=== PATIENT | female | born 1995 | race African-American/Black ===

== ENCOUNTER 2016-08-26 12:36 | Emergency (ER) | payer MEDICAID, OTHER ==
[~2016-08-26] VITALS: Ht 152.4 cm; Wt 55.0 kg
[~2016-08-26 12:36] MED LIST: SPRI28TA PO
[2016-08-26 12:43] VITALS: BP 108/75; PULSE 87; RESP 12; TEMP 97.5; O2SAT 99
[2016-08-26] MEDS ORDERED: SODIUM CHLOR 0.9% 1000 ML INJ 1,000 ML IV ONE (13:15)
--- NOTE | 2016-08-26 13:24 | PD ---
HPI Chief Complaint: Syncope/Near-Syncope Time Seen by Provider: 13:20 Travel History International Travel<30 days: No Contact w/Intl Traveler<30days: No Traveled to known affect area: No History of Present Illness HPI Patient is a 20-year-old female 11 weeks gestation age who woke up this morning with a left-sided frontal headache and experienced a syncopal at work. She states that one hour prior to arrival she felt the headache acutely worsen and then she developed blurred vision, a warm feeling, shortness of breath and passed out. Loss of consciousness was only a few seconds. She states she hit her forehead on the floor and the headache has worsened. She states that she can hear people talking to her while she has passed out. This was not positional related as she been standing for some time. She denies any neck pain , weakness or paresthesias in her extremities. She denies difficulty speaking. She states she is continued have shortness of breath and has now developed a dry cough. He denies any fever or ENT/URI symptoms. She denies any swelling or pain in her legs. She denies history of DVT. She had an ultrasound on August 12 which showed an intrauterine at 9 weeks gestational age she states. She denies any abdominal pain, vaginal bleeding or vaginal discharge. She denies dysuria and diarrhea. 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) Respiratory: No Immunizations Current: Yes ?: : 0 Past Surgical History Hysterectomy: No Tonsillectomy: Yes Social History Alcohol Use: No Tobacco Use: No Substance Use: No Allergies-Medications (Allergen,Severity, Reaction): Uncoded Allergies: dust mites (Allergy, Unknown, hives, 03/30/15) Reported Meds & Prescriptions Reported Meds & Active Scripts Active Sprintec 28 (Ethinyl Estradiol/Norgestimate) 1 Tab Tab 1 Tab PO DAILY Review of Systems Except as stated in HPI: all other systems reviewed are Neg Physical Exam Narrative GENERAL: Well-developed and well-nourished adult female in no acute distress. SKIN: Warm and dry. Good turgor without tenting. HEAD: Normocephalic and atraumatic. No abrasions or hematomas. Mild left frontal tenderness without crepitus or step-offs. EYES: PERRL bilaterally, 5mm. EOMI bilaterally. No injection or icterus present. No proptosis. Lids without edema or erythema. ENT: Buccal mucosa pink and moist. Oropharynx free of erythema, tonsillar hypertrophy, masses, swelling, asymmetry and exudates. Uvula midline and airway patent. NECK: Supple, no midline tenderness, crepitus or step-offs. Trachea midline, no JVD. No cervical or facial lymphadenopathy. CARDIOVASCULAR: Regular rate and rhythm without murmurs, rubs, clicks or gallops. Radial and posterior tibial pulses 2+ bilaterally. No pedal edema. Negative bilateral Homans sign. RESPIRATORY: Clear to auscultation bilaterally with symmetrical rise and fall, no distress or use of accessory muscles. GASTROINTESTINAL: Non-tender, non-distended. Normal bowel sounds all 4 quadrants. No masses or organomegaly present. MUSCULOSKELETAL: No gait disturbances. Patient freely moving all four extremities spontaneously. Extremities without clubbing, cyanosis, or edema. No obvious deformities. NEUROLOGIC: CN II-XII grossly intact. Awake and alert. Negative pronator drift. Anguiano and accurate finger to nose testing bilaterally. Strength 5/5 bilateral shoulder flexion, shoulder extension, shoulder abduction, shoulder adduction, elbow flexion, elbow extension. Sensation intact and strength 5/5 over radial, median, and ulnar nerve distributions bilaterally.Sensation intact L2-S2 bilaterally. Strength 5/5 in hip flexion, hip extension, knee flexion, knee extension, plantar flexion, dorsiflexion bilaterally. Bilateral biceps, brachioradialis, patellar and Achilles DTRs 2+. Downgoing Babinskis bilaterally. Normal speech. PSYCHIATRIC: Appropriate mood and affect; insight and judgment normal. Data Data Last Documented VS Vital Signs Date Time Temp Pulse Resp B/P Pulse Ox O2 Delivery O2 Flow Rate FiO2 08/26/16 14:02 80 15 114/62 86 16 129/72 08/26/16 13:35 98 Room Air 08/26/16 12:43 97.5 Orders Electrocardiogram (08/26/16 13:15) Beta Hcg (Quant/Titer) (08/26/16 13:15) Complete Blood Count With Diff (08/26/16 13:15) Comprehensive Metabolic Panel (08/26/16 13:15) Magnesium (Mg) (08/26/16 13:15) Ckmb (Isoenzyme) Profile (08/26/16 13:15) Troponin I (08/26/16 13:15) Act Partial Throm Time (Ptt) (08/26/16 13:15) Prothrombin Time / Inr (Pt) (08/26/16 13:15) Urinalysis - C+S If Indicated (08/26/16 13:15) Chest, Single Ap (08/26/16 13:15) Ct Brain W/O Iv Contrast(Rout) (08/26/16 13:15) Blood Glucose (08/26/16 13:15) Ecg Monitoring (08/26/16 13:15) Iv Access Insert/Monitor (08/26/16 13:15) Oximetry (08/26/16 13:15) Sodium Chlor 0.9% 1000 Ml Inj (Ns 1000 M (08/26/16 13:15) Orthostatic Vital Signs (08/26/16 13:15) Ed Poc Ultrasound (08/26/16 13:15) Acetaminophen (Tylenol) (08/26/16 14:45) Labs Laboratory Tests Test 08/26/16 08/26/16 13:45 14:40 White Blood Count 10.5 TH/MM3 Red Blood Count 4.26 MIL/MM3 Hemoglobin 12.9 GM/DL Hematocrit 37.7 % Mean Corpuscular Volume 88.5 FL Mean Corpuscular Hemoglobin 30.2 PG Mean Corpuscular Hemoglobin 34.2 % Concent Red Cell Distribution Width 12.9 % Platelet Count 295 TH/MM3 Mean Platelet Volume 8.9 FL Neutrophils (%) (Auto) 79.1 % Lymphocytes (%) (Auto) 13.6 % Monocytes (%) (Auto) 6.5 % Eosinophils (%) (Auto) 0.4 % Basophils (%) (Auto) 0.4 % Neutrophils # (Auto) 8.3 TH/MM3 Lymphocytes # (Auto) 1.4 TH/MM3 Monocytes # (Auto) 0.7 TH/MM3 Eosinophils # (Auto) 0.0 TH/MM3 Basophils # (Auto) 0.0 TH/MM3 CBC Comment DIFF FINAL Differential Comment Prothrombin Time 10.8 SEC Prothromb Time International 1.0 RATIO Ratio Activated Partial 23.3 SEC Thromboplast Time Sodium Level 134 MEQ/L Potassium Level 3.6 MEQ/L Chloride Level 103 MEQ/L Carbon Dioxide Level 23.0 MEQ/L Anion Gap 8 MEQ/L Blood Urea Nitrogen 7 MG/DL Creatinine 0.63 MG/DL Estimat Glomerular Filtration 147 ML/MIN Rate Random Glucose 80 MG/DL Calcium Level 8.5 MG/DL Magnesium Level 1.8 MG/DL Total Bilirubin 0.3 MG/DL Aspartate Amino Transf 14 U/L (AST/SGOT) Alanine Aminotransferase 24 U/L (ALT/SGPT) Alkaline Phosphatase 56 U/L Total Creatine Kinase 51 U/L Troponin I LESS THAN 0.02 NG/ML Total Protein 7.3 GM/DL Albumin 3.2 GM/DL Human Chorionic Gonadotropin, 63872 MIU/ML Quant Urine Color LIGHT-YELLOW Urine Turbidity CLEAR Urine pH 6.5 Urine Specific [place] 1.008 Urine Protein NEG mg/dL Urine Glucose (UA) NEG mg/dL Urine Ketones 10 mg/dL Urine Occult Blood NEG Urine Nitrite NEG Urine Bilirubin NEG Urine Urobilinogen LESS THAN 2.0 MG/DL Urine Leukocyte Esterase NEG Urine RBC 1 /hpf Urine WBC 3 /hpf Urine Squamous Epithelial 1 /hpf Cells Urine Bacteria RARE /hpf Microscopic Urinalysis Comment CULT NOT INDICATED MDM Medical Decision Making Medical Screen Exam Complete: Yes Emergency Medical Condition: Yes Interpretation(s) Laboratory Tests Test 08/26/16 08/26/16 13:45 14:40 White Blood Count 10.5 TH/MM3 (4.0-11.0) Red Blood Count 4.26 MIL/MM3 (4.00-5.30) Hemoglobin 12.9 GM/DL (11.6-15.3) Hematocrit 37.7 % (35.0-46.0) Mean Corpuscular Volume 88.5 FL (80.0-100.0) Mean Corpuscular Hemoglobin 30.2 PG (27.0-34.0) Mean Corpuscular Hemoglobin 34.2 % Concent (32.0-36.0) Red Cell Distribution Width 12.9 % (11.6-17.2) Platelet Count 295 TH/MM3 (150-450) Mean Platelet Volume 8.9 FL (7.0-11.0) Neutrophils (%) (Auto) 79.1 % (16.0-70.0) Lymphocytes (%) (Auto) 13.6 % (9.0-44.0) Monocytes (%) (Auto) 6.5 % (0.0-8.0) Eosinophils (%) (Auto) 0.4 % (0.0-4.0) Basophils (%) (Auto) 0.4 % (0.0-2.0) Neutrophils # (Auto) 8.3 TH/MM3 (1.8-7.7) Lymphocytes # (Auto) 1.4 TH/MM3 (1.0-4.8) Monocytes # (Auto) 0.7 TH/MM3 (0-0.9) Eosinophils # (Auto) 0.0 TH/MM3 (0-0.4) Basophils # (Auto) 0.0 TH/MM3 (0-0.2) CBC Comment DIFF FINAL Differential Comment Prothrombin Time 10.8 SEC (9.8-11.6) Prothromb Time International 1.0 RATIO Ratio Activated Partial 23.3 SEC Thromboplast Time (24.3-30.1) Sodium Level 134 MEQ/L (136-145) Potassium Level 3.6 MEQ/L (3.5-5.1) Chloride Level 103 MEQ/L (98-107) Carbon Dioxide Level 23.0 MEQ/L (21.0-32.0) Anion Gap 8 MEQ/L (5-15) Blood Urea Nitrogen 7 MG/DL (7-18) Creatinine 0.63 MG/DL (0.50-1.00) Estimat Glomerular Filtration 147 ML/MIN Rate (>89) Random Glucose 80 MG/DL (74-106) Calcium Level 8.5 MG/DL (8.5-10.1) Magnesium Level 1.8 MG/DL (1.5-2.5) Total Bilirubin 0.3 MG/DL (0.2-1.0) Aspartate Amino Transf 14 U/L (16-38) (AST/SGOT) Alanine Aminotransferase 24 U/L (9-42) (ALT/SGPT) Alkaline Phosphatase 56 U/L (45-117) Total Creatine Kinase 51 U/L (26-192) Troponin I LESS THAN 0.02 NG/ML (0.02-0.05) Total Protein 7.3 GM/DL (6.4-8.2) Albumin 3.2 GM/DL (3.4-5.0) Human Chorionic Gonadotropin, 55918 MIU/ML Quant (0-5) Urine Color LIGHT-YELLOW (YELLW/STRAW) Urine Turbidity CLEAR (CLEAR) Urine pH 6.5 (5.0-8.5) Urine Specific [place] 1.008 (1.002-1.035) Urine Protein NEG mg/dL (NEG-TRACE) Urine Glucose (UA) NEG mg/dL (NEG) Urine Ketones 10 mg/dL (NEG) Urine Occult Blood NEG (NEG) Urine Nitrite NEG (NEG) Urine Bilirubin NEG (NEG) Urine Urobilinogen LESS THAN 2.0 MG/DL (LESS THAN 2.0) Urine Leukocyte Esterase NEG (NEG) Urine RBC 1 /hpf (0-3) Urine WBC 3 /hpf (0-5) Urine Squamous Epithelial 1 /hpf (0-5) Cells Urine Bacteria RARE /hpf (NONE) Microscopic Urinalysis Comment CULT NOT INDICATED Last [address] 08/26/[id number] Signed Impressions: Service Date/Time: Friday, August 26, 2016 14:20 - CONCLUSION: 1. No acute abnormality identified. Eliud Andres MD Chest X-Ray 08/26/161314 Signed Impressions: Service Date/Time: Friday, August 26, 2016 13:32 - CONCLUSION: No acute disease. No significant change has occurred. Mt Patel MD Differential Diagnosis Intracranial hemorrhage versus ectopic versus preeclampsia versus arrhythmia versus metabolic derangement versus valvular disorder versus PE versus hypoglycemia versus vasovagal syndrome versus orthostatic hypotension Narrative Course Patient is a 20-year-old female with a history of migraine disorder is currently 11 weeks presenting with a syncopal episode and headache. Is a history of migraines but also the left frontal meningioma and had a headache this morning that was different from her usual headaches. Headache worsening intensity and that she experienced her vision, warm feeling, shortness of breath and had a syncopal episode. She was able to hear people talking her during this time. This lasted a few seconds. She didn't hit her head on the floor when falling and has had worsening headache since. She has no other neurological complaints and her exam is normal. Ultrasound done on August 12 showed 9 week gestational age IUP per patient. Dr. Yee and I performed bedside ultrasound which also showed IUP with normal heart rate. Patient has some dyspnea on arrival and a slight dry cough which has resolved. She admits to not eating anything today but has been drinking fluids. She denies any belly pain or vaginal bleeding or discharge. Labs ordered in addition to EKG and chest x-ray. I discussed with Dr. Eli who agreed the patient required CT of the head given the worsening headache, history of angioma and fall. I discussed with the patient and her family the risks and benefits and she wishes to proceed. I spoke with Liyah in CT attempt to minimize radiation dose and she'll appropriately and they will respond properly. Glucose 82. EKG sinus rhythm with rate of 78. Normal intervals and axis. No ST-T changes. Chest x-ray shows no acute cardiopulmonary process. CBC shows WBC 10.5. Urine shows 10 ketones but is otherwise unremarkable. Sodium 134, albumin 3.2, troponin less than 0.02. HCG 57,000 consistent with gestational age. Patient reports resolution of the headache after fluids and Tylenol. This time the syncope episode was likely secondary to mild dehydration and possible hypoglycemia with current . Cardio: Symptoms have resolved and she has been normotensive and not hypoxic or tachycardic while here. Discussed with Dr. Eli regarding workup for PE and she agrees this is not warranted at present. Patient will be discharged with recommendations to drink lots of fluids, eat small regular meals, avoid overexertion and called with her PCP and OB in 1-2 days.I discussed this patient with Dr. Eli throughout their care. She has also evaluated this patient, helped formulate, and agrees with the assessment and plan.See discharge paperwork for further instructions. The plan was discussed with the patient who acknowledged their understanding and agreement. Reinforced the follow-up with primary care is critically important. Patient instructed on emergent conditions that should prompt return to ED. Diagnosis Primary Impression: Syncope Qualified Code: R55 - Vasovagal syncope Additional Impressions: Headache Qualified Code: G44.209 - Acute non intractable tension-type headache Qualified Code: Z3A.11 - 11 weeks gestation of Patient Instructions: First Trimester (ED), General Instructions, Syncope (ED) Additional Instructions: Continue taking vitamins Drink lots of fluids and eat small regular meals every 3-4 hours to avoid dehydration or low blood sugar Use caution when transferring from lying or sitting to standing Follow-up with your OB in 1-2 days Return to the ED for any acute worsening of symptoms Disposition: 01 DISCHARGE HOME Condition: Stable Watson Walker III Aug 26, 2016 13:24
--- NOTE | 2016-08-26 13:44 | PD ---
Physical Exam Narrative I, Dr. Eli, have reviewed the advance practice practitioner's documentation and am in agreement, met with the patient face to face, made the diagnosis, and the medical decision making was done by me. *My assessment and Findings: Patient is a 20-year-old female, approximately 11 weeks who comes in after syncopal episode today. This is the second time she has had syncope during this . She denies any bleeding or leakage of fluids. She says she felt very hot prior to the episode. She says she did not eat today. She complains of a cough with one episode of shortness of breath. She has not had any leg swelling. Exam shows no neurologic abnormalities. Abdomen is soft and nontender. Data Data Last Documented VS Vital Signs Date Time Temp Pulse Resp B/P Pulse Ox O2 Delivery O2 Flow Rate FiO2 08/26/16 16:30 62 15 114/70 97 08/26/16 13:35 Room Air 08/26/16 12:43 97.5 Orders Electrocardiogram (08/26/16 13:15) Beta Hcg (Quant/Titer) (08/26/16 13:15) Complete Blood Count With Diff (08/26/16 13:15) Comprehensive Metabolic Panel (08/26/16 13:15) Magnesium (Mg) (08/26/16 13:15) Ckmb (Isoenzyme) Profile (08/26/16 13:15) Troponin I (08/26/16 13:15) Act Partial Throm Time (Ptt) (08/26/16 13:15) Prothrombin Time / Inr (Pt) (08/26/16 13:15) Urinalysis - C+S If Indicated (08/26/16 13:15) Chest, Single Ap (08/26/16 13:15) Ct Brain W/O Iv Contrast(Rout) (08/26/16 13:15) Blood Glucose (08/26/16 13:15) Ecg Monitoring (08/26/16 13:15) Iv Access Insert/Monitor (08/26/16 13:15) Oximetry (08/26/16 13:15) Sodium Chlor 0.9% 1000 Ml Inj (Ns 1000 M (08/26/16 13:15) Orthostatic Vital Signs (08/26/16 13:15) Ed Poc Ultrasound (08/26/16 13:15) Acetaminophen (Tylenol) (08/26/16 14:45) Labs Laboratory Tests Test 08/26/16 08/26/16 13:45 14:40 White Blood Count 10.5 TH/MM3 Red Blood Count 4.26 MIL/MM3 Hemoglobin 12.9 GM/DL Hematocrit 37.7 % Mean Corpuscular Volume 88.5 FL Mean Corpuscular Hemoglobin 30.2 PG Mean Corpuscular Hemoglobin 34.2 % Concent Red Cell Distribution Width 12.9 % Platelet Count 295 TH/MM3 Mean Platelet Volume 8.9 FL Neutrophils (%) (Auto) 79.1 % Lymphocytes (%) (Auto) 13.6 % Monocytes (%) (Auto) 6.5 % Eosinophils (%) (Auto) 0.4 % Basophils (%) (Auto) 0.4 % Neutrophils # (Auto) 8.3 TH/MM3 Lymphocytes # (Auto) 1.4 TH/MM3 Monocytes # (Auto) 0.7 TH/MM3 Eosinophils # (Auto) 0.0 TH/MM3 Basophils # (Auto) 0.0 TH/MM3 CBC Comment DIFF FINAL Differential Comment Prothrombin Time 10.8 SEC Prothromb Time International 1.0 RATIO Ratio Activated Partial 23.3 SEC Thromboplast Time Sodium Level 134 MEQ/L Potassium Level 3.6 MEQ/L Chloride Level 103 MEQ/L Carbon Dioxide Level 23.0 MEQ/L Anion Gap 8 MEQ/L Blood Urea Nitrogen 7 MG/DL Creatinine 0.63 MG/DL Estimat Glomerular Filtration 147 ML/MIN Rate Random Glucose 80 MG/DL Calcium Level 8.5 MG/DL Magnesium Level 1.8 MG/DL Total Bilirubin 0.3 MG/DL Aspartate Amino Transf 14 U/L (AST/SGOT) Alanine Aminotransferase 24 U/L (ALT/SGPT) Alkaline Phosphatase 56 U/L Total Creatine Kinase 51 U/L Troponin I LESS THAN 0.02 NG/ML Total Protein 7.3 GM/DL Albumin 3.2 GM/DL Human Chorionic Gonadotropin, 18975 MIU/ML Quant Urine Color LIGHT-YELLOW Urine Turbidity CLEAR Urine pH 6.5 Urine Specific [place] 1.008 Urine Protein NEG mg/dL Urine Glucose (UA) NEG mg/dL Urine Ketones 10 mg/dL Urine Occult Blood NEG Urine Nitrite NEG Urine Bilirubin NEG Urine Urobilinogen LESS THAN 2.0 MG/DL Urine Leukocyte Esterase NEG Urine RBC 1 /hpf Urine WBC 3 /hpf Urine Squamous Epithelial 1 /hpf Cells Urine Bacteria RARE /hpf Microscopic Urinalysis Comment CULT NOT INDICATED MDM Supervised Visit with ALTHEA: Yes Narrative Course IV established, patient monitored on surveillance monitor without any arrhythmia seen. CT head performed after patient gave consent, shows no acute abnormalities. Labs are within normal limits. US shows IUP, no free fluid in the pelvis. Patient discharged home to follow up with OB. Advised to drink plenty of fluids. Advised to return as needed for any worsening symptoms. Procedures Procedure Narrative Emergency Department Pelvic ultrasound was performed with patient consent. The curvilinear probe was used in the transverse and sagittal views within the suprapubic region revealing single intrauterine . heart rate was 162. No free fluid in the pelvis. Diagnosis Primary Impression: Syncope Qualified Code: R55 - Vasovagal syncope Disposition: 01 DISCHARGE HOME Condition: Stable Hermila Eli MD Aug 26, 2016 13:44
--- NOTE | 2016-08-26 13:52 | RADRPT ---
EXAM DATE/TIME: 08/26/2016 13:32 [facility] COMPARISON: CHEST SINGLE AP, December 07, 2014, 17:38. INDICATIONS : Syncope, cough. MEDICAL HISTORY : None. SURGICAL HISTORY : None. ENCOUNTER: Initial ACUITY: 1 day PAIN SCORE: 0/10 LOCATION: Bilateral chest FINDINGS: A single view of the chest demonstrates the lungs to be symmetrically aerated without evidence of mas s, infiltrate or effusion. The cardiomediastinal contours are unremarkable. Osseous structures are intact. CONCLUSION: No acute disease. No significant change has occurred. Mt Patel MD on August 26, 2016 at 13:50 Board Certified Radiologist. This report was verified electronically.
[2016-08-26 13:56] LABS: AUTOMATED NEUTROPHIL # 8.3 TH/MM3 (1.8-7.7); BASOPHIL % 0.4 % (0.0-2.0); EOSINOPHIL % 0.4 % (0.0-4.0); HEMATOCRIT 37.7 % (35.0-46.0); HEMO FLAGS DIFF FINAL; LYMPH % 13.6 % (9.0-44.0); LYMPHOCYTE # 1.4 TH/MM3 (1.0-4.8); MEAN CELL VOLUME 88.5 FL (80.0-100.0); MEAN CORPUSCULAR HEMOGLOBIN 30.2 PG (27.0-34.0); MEAN CORPUSCULAR HGB CONC 34.2 % (32.0-36.0); MONO % 6.5 % (0.0-8.0); NEUT % 79.1 % (16.0-70.0); PLATELET COUNT 295 TH/MM3 (150-450); RED BLOOD COUNT 4.26 MIL/MM3 (4.00-5.30); RED CELL DISTRIBUTION WIDTH 12.9 % (11.6-17.2); WHITE BLOOD COUNT 10.5 TH/MM3 (4.0-11.0)
[2016-08-26 14:02] VITALS: BP_SYST 114; BP_SYST 129; BP_DIAS 62; BP_DIAS 72; RESP 15; RESP 16
[2016-08-26 14:14] LABS: APTT (PATIENT) 23.3 SEC (24.3-30.1); PROTHROMBIN TIME - PATIENT 10.8 SEC (9.8-11.6)
[2016-08-26 14:21] LABS: ANION GAP 8 MEQ/L (5-15); AST (GOT) 14 U/L (16-38); BLOOD UREA NITROGEN 7 MG/DL (7-18); CHLORIDE 103 MEQ/L (98-107); GLOMERULAR FILTRATION RATE 147 ML/MIN (>89); MAGNESIUM 1.8 MG/DL (1.5-2.5); POTASSIUM 3.6 MEQ/L (3.5-5.1); SODIUM (NA) 134 MEQ/L (136-145)
--- NOTE | 2016-08-26 14:30 | RADRPT ---
EXAM DATE/TIME: 08/26/2016 14:20 [facility] COMPARISON: No previous studies available for comparison. INDICATIONS : Sycopal episode. Dizziness. Left frontal headache. RADIATION DOSE: 56.35 CTDIvol (mGy) MEDICAL HISTORY : Venous angioma frontal lobe. SURGICAL HISTORY : None. ENCOUNTER: Initial ACUITY: 1 day PAIN SCALE: 8/10 LOCATION: Left cranial TECHNIQUE: Multiple contiguous axial images were obtained of the head. Using automated exposure control and adj ustment of the mA and/or kV according to patient size, radiation dose was kept as low as reasonably a chievable to obtain optimal diagnostic quality images. FINDINGS: CEREBRUM: The ventricles are normal for age. No evidence of midline shift, mass lesion, hemorrhage or acute in farction. No extra-axial fluid collections are seen. By report, this patient has a venous angioma in the frontal lobe. This is not visible by noncontrast CT imaging. POSTERIOR FOSSA: The cerebellum and brainstem are intact. The 4th ventricle is midline. The cerebellopontine angle i s unremarkable. EXTRACRANIAL: The visualized portion of the orbits is intact. SKULL: The calvaria is intact. No evidence of skull fracture. CONCLUSION: 1. No acute abnormality identified. Eliud Andres MD on August 26, 2016 at 14:27 Board Certified Radiologist. This report was verified electronically.
[2016-08-26 14:42] LABS: ALKALINE PHOSPHATASE 56 U/L (45-117); ALT (GPT) 24 U/L (9-42); BETA HCG QUANT 57382 MIU/ML (0-5); CREATINE KINASE 51 U/L (26-192); TOTAL BILIRUBIN ADULT 0.3 MG/DL (0.2-1.0)
[2016-08-26] MEDS ORDERED: ACETAMINOPHEN 325 MG TAB PO ONE (14:45)
[2016-08-26 15:14] LABS: BACTERIA, URINE RARE /hpf; BLOOD, URINE NEG (NEG); COMMENT (UR) CULT NOT INDICATED; CULTURE IF INDICATED CULT NOT INDICATED; GLUCOSE,URINE NEG (NEG); KETONE, URINE 10 mg/dL (NEG); NITRITE,URINE NEG (NEG); PH, URINE 6.5 (5.0-8.5); SQUAMOUS EPITHELIAL CELL URINE 1 /hpf (0-5); URINE COLOR LIGHT-YELLOW (YELLW/STRAW)
[2016-08-26 16:30] VITALS: BP 114/70
--- NOTE | 2016-08-27 11:53 | EKG ---
Date Performed: 08/26/2016 Time Performed: 14:14:07 PTAGE: 20 years EKG: Sinus rhythm WITH MARKED SINUS ARRHYTHMIA BORDERLINE ECG PREVIOUS TRACING : 07/13/2013 06.36 DOCTOR: Lance Saab Interpretating Date/Time 08/27/2016 11:52:50
== END 2016-08-26 16:30 | disposition home or self-care (01) ==
LOC: NEPE 12:36
DX: O26.891 Other specified pregnancy related conditions, first trimester (principal); G44.209 Tension-type headache, unspecified, not intractable; R55 Syncope and collapse; Z3A.11 11 weeks gestation of pregnancy
CPT/HCPCS: 70450; 71010; 80053; 81001; 82550; 83735; 84484; 84702; 85025; 85610; 85730; 93005; 99285; J7030

== ENCOUNTER 2016-12-18 04:23 | Emergency (ER) | payer MEDICAID ==
[2016-12-18 05:48] LABS: BACTERIA, URINE OCC /hpf; BLOOD, URINE NEG (NEG); GLUCOSE,URINE NEG (NEG); KETONE, URINE NEG (NEG); MUCUS URINE FEW /lpf (OCC); NITRITE,URINE NEG (NEG); SQUAMOUS EPITHELIAL CELL URINE 2 /hpf (0-5); TRANSITIONAL EPI CELLS, URINE <1 /hpf; URINE COLOR YELLOW (YELLW/STRAW)
[2016-12-18 05:56] LABS: COMMENT (UR) CULT NOT INDICATED; CULTURE IF INDICATED CULT NOT INDICATED
--- NOTE | 2016-12-18 06:03 | PD ---
HPI Chief Complaint Fall Date Seen: Dec 18, 2016 Travel History International Travel<30 Days: No Contact w/Intl Traveler<30Days: No Known Affected Area: No History of Present Illness HPI 21 yo @ 28w0d with MO 03-12-2017. care with Dr. Recinos. Patient presents to [facility] this am after falling in her shower. She slipped and hit her left lower back/side in the edge of the tub. She denies hitting her abdomen. She c/o back pain in that area. Denies UC, LOF, or VB. +FM History Past Medical History Medical History: Denies Significant Hx Obstetric History Obstetric History G1 Past Surgical History Narrative Surgical T&A Family History Family History: Negative Social History Alcohol Use: No Tobacco Use: No Substance Abuse: No Allergies-Medications (Allergen,Severity, Reaction): Uncoded Allergies: dust mites (Allergy, Unknown, hives, 03/30/15) Home Meds Active Scripts Norgestimate-Ethinyl Estradiol (Sprintec 28)1 Tab Tab1 Tab PO DAILY #1 PACK Ref 11 Prov:Kayode Fabian MD 11/26/15 Review of Systems General / Constitutional: No: Fever, Chills Eyes: No: Blurred Vision, Visual changes HENT: No: Headaches, Lightheadedness Cardiovascular: No: Chest Pain or Discomfort, Palpitations Respiratory: No: Cough, Short of Breath Gastrointestinal: No: Nausea, Vomiting, Abdominal Pain Genitourinary: No: Urgency, Frequency, Dysuria, Discharge, Vaginal Bleeding Musculoskeletal: Pain (left lower back), No: Limited ROM, Edema Skin: No Rash, No Itching, No Lesions Neurologic: No: Focal Abnormalities, Coordination Problem Physical Exam Vital Signs Date Time Temp Pulse Resp B/P Pulse Ox O2 Delivery O2 Flow Rate FiO2 12/18/16 07:00 98.2 16 12/18/16 06:57 94 118/62 Narrative GENERAL: Well-nourished, well-developed patient. NAD. Was able to ambulate/ walk to [facility]/room SKIN: Warm and dry. HEAD: Normocephalic and atraumatic. EYES: No scleral icterus. No injection or drainage. ENT: No nasal drainage noted. Mucous membranes pink. Airway patent. NECK: trachea midline. No JVD. CARDIOVASCULAR: Regular rate 90-100, VSS RESPIRATORY: No accessory muscle use. ABDOMEN/GI: Abdomen soft, non-tender, no rebound, no guarding Gravid TOCO: rare UC FHT's: Category: I Baseline: 145 Variability: mod Decels: [-] EXTREMITIES: No cyanosis or edema. Normal ROM, No injury. Left hip normal ROM. BACK: Nontender without obvious deformity. No CVA tenderness. No bruising NEUROLOGICAL: Awake and alert. Motor and sensory grossly within normal limits. Normal speech. Data Data Vital Signs Reviewed: Yes Orders Vital Signs (Adult) .ON ADMISSION (12/18/16 04:48) ^ Labor Status (12/18/16 04:48) Urinalysis - C+S If Indicated (12/18/16 04:48) Us Ob Bpp Wo Nst (12/18/16 04:48) MDM Interpretation(s) Diagnostics US: EFW 1150g 52% KRISTOFER 20cm BPP 2/2 Placenta posterior, grade 1-2, no previa, 3VC Cervical length 4.5cm Narrative Course / MDM 28 weeks Fall onto lower back/left side on shower tub. Braced with her arms. No acute injuries. FHT reassuring for gestational age No s/s PTL. NO VB, LOF US with Diagnostics - WNL A+ Records from [facility] D/c home F/u with Dr. Recinos Diagnosis Diagnosis: Primary Impression: Traumatic injury during in third trimester Additional Impressions: Fall in (into) shower or empty bathtub, initial encounter 28 weeks gestation of Elis Woods MD Dec 18, 2016 06:03
[2016-12-18 06:45] VITALS: PULSE 90
[2016-12-18 06:50] VITALS: PULSE 89
[2016-12-18 06:55] VITALS: PULSE 86
[2016-12-18 06:57] VITALS: BP 118/62; PULSE 94
[2016-12-18 07:00] VITALS: RESP 16; TEMP 98.2
== END 2016-12-18 08:37 | disposition home or self-care (01) ==
LOC: HOBED 04:23
DX: O9A.213 Injury, poisoning and certain other consequences of external causes complicating pregnancy, third trimester (principal); M54.5 Low back pain; W18.2XXA Fall in (into) shower or empty bathtub, initial encounter; Z3A.28 28 weeks gestation of pregnancy
CPT/HCPCS: 76816; 76819; 81001

== ENCOUNTER 2017-02-26 18:48 | Inpatient (IN) | payer MEDICAID ==
[~2017-02-26] VITALS: Ht 152.4 cm; Wt 68.9 kg
[2017-02-26] MEDS ORDERED: LIDOCAINE HCL 1% 50 ML VIAL I-DERMAL PRN (20:45)
[2017-02-26] MEDS ORDERED: CITRIC ACID-SODIUM CITRATE LIQ 30 ML UDC PO SCH (20:45)
[2017-02-26] MEDS ORDERED: NS 1000 ML IV PRN (20:45)
[2017-02-26] MEDS ORDERED: ONDANSETRON HCL 4 MG/2 ML VIAL IV PRN (20:45)
[2017-02-26] MEDS ORDERED: NS 500 ML BOLUS IV PRN (20:45)
[2017-02-26] MEDS ORDERED: LACTATED RINGER'S 1000 ML BOLUS IV PRN (20:45)
[2017-02-26 21:00] LABS: AUTOMATED NEUTROPHIL # 5.4 TH/MM3 (1.8-7.7); BACTERIA, URINE OCC /hpf; BASOPHIL % 0.4 % (0.0-2.0); BLOOD, URINE NEG (NEG); COMMENT (UR) CULT NOT INDICATED; CULTURE IF INDICATED CULT NOT INDICATED; EOSINOPHIL % 0.3 % (0.0-4.0); GLUCOSE,URINE NEG (NEG); HEMATOCRIT 31.9 % (35.0-46.0); HEMO FLAGS DIFF FINAL; KETONE, URINE NEG (NEG); LYMPH % 24.1 % (9.0-44.0); MEAN CELL VOLUME 86.8 FL (80.0-100.0); MEAN CORPUSCULAR HEMOGLOBIN 28.5 PG (27.0-34.0); MEAN CORPUSCULAR HGB CONC 32.9 % (32.0-36.0); MONO % 9.7 % (0.0-8.0); MUCUS URINE FEW /lpf (OCC); NEUT % 65.5 % (16.0-70.0); NITRITE,URINE NEG (NEG); PLATELET COUNT 281 TH/MM3 (150-450); RED BLOOD COUNT 3.67 MIL/MM3 (4.00-5.30); RED CELL DISTRIBUTION WIDTH 14.6 % (11.6-17.2); SQUAMOUS EPITHELIAL CELL URINE 3 /hpf (0-5); URINE COLOR YELLOW (YELLW/STRAW); WHITE BLOOD COUNT 8.3 TH/MM3 (4.0-11.0)
[2017-02-26] MEDS ORDERED: MINERAL OIL 10 ML VIAL TOPICAL PRN (21:00)
[2017-02-26] MEDS ORDERED: OXYTOCIN 30 UNITS 500ML PREMIX IV ONE (21:00)
[2017-02-26] MEDS ORDERED: LIDOCAINE HCL 1% 50 ML VIAL INFIL PRN (21:00)
[2017-02-26] MEDS ORDERED: DINOPROSTONE 10 MG VAG INSERT VAGINAL ONE (21:00)
[2017-02-26 21:09] LABS: ALT (GPT) 111 U/L (9-42); ANION GAP 8 MEQ/L (5-15); AST (GOT) 59 U/L (16-38); BICARBONATE 24.5 MEQ/L (21.0-32.0); BLOOD UREA NITROGEN 12 MG/DL (7-18); CHLORIDE 107 MEQ/L (98-107); GLOMERULAR FILTRATION RATE 98 ML/MIN (>89); POTASSIUM 3.7 MEQ/L (3.5-5.1); SODIUM (NA) 139 MEQ/L (136-145)
[2017-02-26 21:11] LABS: ALKALINE PHOSPHATASE 274 U/L (45-117); TOTAL BILIRUBIN ADULT 0.5 MG/DL (0.2-1.0)
[2017-02-26] MEDS: LACTATED RINGER'S 1000 ML IV SCH (21:29)
[2017-02-26] MEDS ORDERED: ZOLPIDEM TARTRATE 10 MG TAB PO PRN (23:45)
[2017-02-27] VITALS (55 sets, daily range): BP systolic 109–155; BP diastolic 54–96; PULSE 18–124; RESP 18–20; TEMP 97.4–99.6
[2017-02-27] MEDS ORDERED: OXYTOCIN 30 UNITS-500ML PREMIX 500 ML IV SCH (07:45)
--- NOTE | 2017-02-27 07:45 | PD.LABORPN ---
Subjective Subjective Admitted last evening for mild pre eclampsia H & P dictated Had painful UCs begin early this am still intact Objective Vital Signs Vital Signs Date Time Temp Pulse Resp B/P Pulse Ox O2 Delivery O2 Flow Rate FiO2 02/27/17 07:14 97.7 75 18 128/84 02/27/17 05:21 18 02/27/17 05:14 81 131/94 Objective 2/80/-2 mildly posterior AROM clear strip category 1 pelvis clinically adequate EFW 7 pounds Assessment/Plan Assessment and Plan mild pre eclampsia for induction no signs of severe features AROMt this am pitocin and epidural as needed. Keyla Recinos MD Feb 27, 2017 07:45
[2017-02-27] MEDS: LACTATED RINGER'S 1000 ML IV SCH ×3 (08:13→22:13)
--- NOTE | 2017-02-27 12:13 | MH ---
cc: LAM RIVERO DATE OF ADMISSION: 02/26/2017 DATE OF 1995 REASON FOR ADMISSION 38 week with mild preeclampsia. HISTORY OF PRESENT CONDITION The patient is a very pleasant 21-year-old black female, 1, para 0 with LMP May 24 and EDC March 12 by a 9 and 4/7 week ultrasound, currently at 38 weeks. She began her care with us at 9 weeks and has been very compliant and had an unremarkable course until yesterday. She has had no prior hypertension. No gestational diabetes and no labor. She began at 124 pounds. Her weight today was 158. She has today 2+ protein and blood pressure 140/90, a mild headache, mild nausea and bloating. She does not have significant edema. Her visit 2 weeks ago she was normotensive and no protein. Yesterday's was 138/82 and 1+ protein. Today she returns for biophysical profile and reevaluation and it shows progression in her symptomatology. She is 50% fingertip and anterior and soft. She has no leaking, bleeding, significant contractions and she has good movement. She does not smoke, drink or use illicit drugs. She has no chronic or systemic illnesses. She has never had any surgeries. FAMILY HISTORY Family history is noncontributory. LABORATORY DATA Her Group B strep was negative. Her blood type is A+. Her hemoglobin was 11.6. She has a normal Pap smear with positive HPV. She is immune to varicella. She is not immune to rubella, serology was all negative. Quad screen was negative. Hepatitis C negative. Drug screen negative. Thyroid test normal. Sickle cell negative. PHYSICAL EXAMINATION GENERAL: She is a very pretty black girl in no acute distress. Does look a little puffy. LUNGS: The lungs are clear. HEART: Heart is regular. ABDOMEN: Abdomen is term. PELVIC: Cervix is as described. EXTREMITIES: She has 1+ deep tendon reflexes, mild edema. heart tones in the 140s. KRISTOFER was 12.9 today. Dopplers are normal. Biophysical was 8/8. Placenta is posterior and the is cephalic. IMPRESSION At this point is 38 week intrauterine with mild preeclampsia, but no reason at this point to continue her . We have reviewed preeclampsia, risks, benefits, expectations, her unfavorable Gracia score and the fact that we are going to do Cervidil tonight. Get liver function studies, uric acid, fibrinogen and platelets and monitor her blood pressures. Mag if necessary and follow up tomorrow for probable induction with Pitocin. Lam Rivero MD PPC/EO /5:32 PM /12:10 PM
[2017-02-27] MEDS ORDERED: ePHEDrine/NS 25 MG/5 ML SYR ONE (13:53)
[2017-02-27] MEDS ORDERED: ePHEDrine/NS 25 MG/5 ML SYR IV PRN (15:50)
[2017-02-27] MEDS ORDERED: fentaNYL 2MCG-BUPIV 0.125% 100 ML EPIDURAL SCH (15:50)
[2017-02-27] MEDS ORDERED: DO NOT ADMINISTER ANTICOAGULANTS PRN (15:50)
[2017-02-27] MEDS ORDERED: NO SYSTEM NARCOTICS PRN (15:50)
[2017-02-28] VITALS (12 sets, daily range): BP systolic 115–157; BP diastolic 60–121; PULSE 66–134; RESP 16–18; TEMP 97.6–98.1
--- NOTE | 2017-02-28 01:14 | PD.OB.DELI ---
Anesthesia: Epidural Episiotomy: None Vaginal Delivery: Normal Presentation: Occiput anterior Nuchal Cord: None Delayed cord clamping (45 sec): No Shoulder Dystocia: Suprapubic pressure given, Coretta maneuver done : Female One Minute : 6 Five Minute : 9 Placenta: Spontaneous delivery, Intact, 3 vessel cord Laceration: No lacerations Lance Nova MD Feb 28, 2017 01:14
[2017-02-28] MEDS ORDERED: SODIUM CHLORIDE 0.9% FLUSH 10 ML FLUSH IV FLUSH SCH (01:15)
[2017-02-28] MEDS ORDERED: ZOLPIDEM TARTRATE 5 MG TAB PO PRN (01:15)
[2017-02-28] MEDS ORDERED: ALUMINUM/MAGNESIUM/SIMETH 30 ML CUP PO PRN (01:15)
[2017-02-28] MEDS ORDERED: SODIUM CHLORIDE 0.9% FLUSH 10 ML FLUSH IV FLUSH PRN (01:15)
[2017-02-28] MEDS ORDERED: ONDANSETRON ODT 4 MG TAB PO PRN (01:15)
[2017-02-28] MEDS ORDERED: OXYTOCIN 10 UNIT/ML AMP XX PRN (01:15)
[2017-02-28] MEDS: IBUPROFEN 600 MG TAB PO PRN ×4 (03:43→21:42)
[2017-02-28] MEDS: ACETAMINOPHEN 325 MG TAB PO PRN ×3 (09:32→21:41)
[2017-02-28] MEDS: DOCUSATE SODIUM 50 MG/SENNA 8.6 MG TAB PO PRN (09:32)
[2017-02-28] MEDS: WITCH HAZEL 50%/GLYCERIN 12.5% 40 PAD JAR TOPICAL PRN ×2 (11:42→23:03)
[2017-02-28] MEDS: BENZOCAINE 20% TOPICAL SPRAY 60 ML CAN TOPICAL PRN (11:43)
[2017-02-28] MEDS ORDERED: MEASLES, MUMPS, RUBELLA VACCINE 0.5 ML VIAL SQ ONE (16:00)
[2017-02-28] MEDS ORDERED: DIPHTH/TETANUS/ACEL PERTUSSIS (BOOSTER) 0.5 ML VIAL/PFS IM ONE (16:00)
--- NOTE | 2017-02-28 16:16 | HHI.DS ---
Admission Date Feb 26, 2017 at 18:48 Admitting Diagnosis Diagnosis: Vaginal Delivery: Normal : Female Pt Condition on Discharge: Good Discharge Disposition: Discharge Home Discharge Instructions Diet Instructions: As Tolerated, No Restrictions Activities You Can Perform: Shower Only-No Bath, Pelvic Rest Activities to Avoid: Driving for 24 hrs, Prolonged Standing, Strenuous Activity , Sexual Activity Lance Nova MD Feb 28, 2017 16:16
[2017-03-01] MEDS: oxyCODONE/ACETAMINOPHEN 5 MG/325 MG TAB PO PRN ×4 (01:46→20:22)
[2017-03-01 08:00] VITALS: BP 139/84; PULSE 79; RESP 16; TEMP 98.4
[2017-03-01] MEDS: IBUPROFEN 600 MG TAB PO PRN ×3 (08:23→20:22)
[2017-03-01] MEDS: WITCH HAZEL 50%/GLYCERIN 12.5% 40 PAD JAR TOPICAL PRN (11:10)
--- NOTE | 2017-03-01 11:33 | HHI.OB ---
Subjective Post Day: 1 Remarks PPD#1, C/O of labial swelling, ,still painful, voiding ok Objective Vitals/I&O Vital Signs Date Time Temp Pulse Resp B/P Pulse Ox O2 Delivery O2 Flow Rate FiO2 03/01/17 08:00 98.4 79 16 139/84 02/28/17 20:16 84 137/71 02/28/17 20:16 85 16 115/62 02/28/17 20:16 97.6 02/28/17 20:00 98.1 Objective Remarks GENERAL: Well-nourished, well-developed patient. CARDIOVASCULAR: Regular rate and rhythm without murmurs, gallops, or rubs. RESPIRATORY: Breath sounds equal bilaterally. No accessory muscle use. ABDOMEN/GI: Abdomen soft, non-tender. Fundus: Firm, non-tender at umbilicus. GENITOURINARY: Labial edema with right sided > left, ,no evidence of hematoma EXTREMITIES: No cyanosis or edema, non-tender, without signs of DVT. Medications and IVs Current Medications Medications (Trade) Dose Ordered Sig/Mukul Route Start Time Stop Time Status Last Admin Lactated Ringer's 1,000 ml @ 125 mls/hr Q8H IV 02/26/17 20:45 02/27/17 22:13 Lactated Ringer's 1,000 ml @ 3,000 mls/hr BOLUS PRN IV 02/26/17 20:45 02/26/17 21:29 Sodium Chloride 500 ml @ 1,000 mls/hr BOLUS PRN IV 02/26/17 20:45 02/27/17 11:55 (NS 1000 ml Inj) 1,000 ml @ 100 mls/hr Q10H PRN IV 02/26/17 20:45 (Zofran Inj) 4 mg Q6H PRN IV 02/26/17 20:45 (fentaNYL INJ) 50 mcg Q1H PRN IV PUSH 02/26/17 21:00 (fentaNYL INJ) 100 mcg Q1H PRN IV PUSH 02/26/17 21:00 02/27/17 11:59 (Muri-Lube Oil) 10 ml UNSCH PRN TOPICAL 02/26/17 21:00 02/27/17 23:30 Zolpidem Tartrate 10 mg 10 mg HS PRN PO 02/26/17 23:45 Oxytocin 500 ml @ 0 mls/hr TITRATE IV 02/27/17 07:45 02/27/17 11:58 (fentaNYL 2MCG-BUPIV 0.125% INJ) 18 ml @ 10 mls/hr TITRATE EPIDURAL 02/27/17 15:50 02/27/17 22:13 (NS Flush) 2 ml BID IV FLUSH 02/28/17 01:15 02/28/17 02:25 (NS Flush) 2 ml UNSCH PRN IV FLUSH 02/28/17 01:15 (Tylenol) 650 mg Q4H PRN PO 02/28/17 01:15 02/28/17 21:41 (Motrin) 600 mg Q6H PRN PO 02/28/17 01:15 03/01/17 08:23 (Americaine 20% Top Spr) 1 spray Q4H PRN TOPICAL 02/28/17 01:15 02/28/17 11:43 (Tucks Pads) 1 applic QID PRN TOPICAL 02/28/17 01:15 03/01/17 11:10 (Justyna-Colace) 2 tab Q12H PRN PO 02/28/17 01:15 02/28/17 09:32 (Ambien) 5 mg HS PRN PO 02/28/17 01:15 (Mag-Al Plus Susp Liq) 15 ml Q8H PRN PO 02/28/17 01:15 (Zofran Odt) 4 mg Q6H PRN PO 02/28/17 01:15 (Percocet 5-325 Mg) 1 tab Q4H PRN PO 02/28/17 23:45 03/01/17 08:22 Assessment/Plan Assessment and Plan PPD#1, stable, slow improvement in labial edema, continue ice packs Discharge Planning does not meet criteria Attending Attestation seen by Lance Cardoso MD Mar 01, 2017 11:33
[2017-03-01 19:50] VITALS: BP 131/84; PULSE 76; RESP 18; TEMP 98.7
[2017-03-01] MEDS: BENZOCAINE 20% TOPICAL SPRAY 60 ML CAN TOPICAL PRN (22:55)
[2017-03-02] MEDS: oxyCODONE/ACETAMINOPHEN 5 MG/325 MG TAB PO PRN (02:07)
[2017-03-02] MEDS: DOCUSATE SODIUM 50 MG/SENNA 8.6 MG TAB PO PRN (02:07)
[2017-03-02] MEDS: IBUPROFEN 600 MG TAB PO PRN (02:07)
--- NOTE | 2017-03-02 08:17 | HHI.OB ---
Subjective Post Day: 2 Remarks no visual changes, no PARRY, no ruq pain. Feeling well. Objective Vitals/I&O Vital Signs Date Time Temp Pulse Resp B/P Pulse Ox O2 Delivery O2 Flow Rate FiO2 03/02/17 03:07 16 03/02/17 03:07 16 03/01/17 19:50 98.7 76 18 131/84 Objective Remarks GENERAL: Well-nourished, well-developed patient. CARDIOVASCULAR: Regular rate and rhythm without murmurs, gallops, or rubs. RESPIRATORY: Breath sounds equal bilaterally. No accessory muscle use. ABDOMEN/GI: Abdomen soft, non-tender. Fundus: Firm, non-tender at umbilicus. GENITOURINARY: min bleeding EXTREMITIES: No cyanosis or edema, non-tender, without signs of DVT. Medications and IVs Current Medications Medications (Trade) Dose Ordered Sig/Mukul Route Start Time Stop Time Status Last Admin Lactated Ringer's 1,000 ml @ 125 mls/hr Q8H IV 02/26/17 20:45 02/27/17 22:13 Lactated Ringer's 1,000 ml @ 3,000 mls/hr BOLUS PRN IV 02/26/17 20:45 02/26/17 21:29 Sodium Chloride 500 ml @ 1,000 mls/hr BOLUS PRN IV 02/26/17 20:45 02/27/17 11:55 (NS 1000 ml Inj) 1,000 ml @ 100 mls/hr Q10H PRN IV 02/26/17 20:45 (Zofran Inj) 4 mg Q6H PRN IV 02/26/17 20:45 (fentaNYL INJ) 50 mcg Q1H PRN IV PUSH 02/26/17 21:00 (fentaNYL INJ) 100 mcg Q1H PRN IV PUSH 02/26/17 21:00 02/27/17 11:59 (Muri-Lube Oil) 10 ml UNSCH PRN TOPICAL 02/26/17 21:00 02/27/17 23:30 Zolpidem Tartrate 10 mg 10 mg HS PRN PO 02/26/17 23:45 Oxytocin 500 ml @ 0 mls/hr TITRATE IV 02/27/17 07:45 02/27/17 11:58 (fentaNYL 2MCG-BUPIV 0.125% INJ) 18 ml @ 10 mls/hr TITRATE EPIDURAL 02/27/17 15:50 02/27/17 22:13 (NS Flush) 2 ml BID IV FLUSH 02/28/17 01:15 02/28/17 02:25 (NS Flush) 2 ml UNSCH PRN IV FLUSH 02/28/17 01:15 (Tylenol) 650 mg Q4H PRN PO 02/28/17 01:15 02/28/17 21:41 (Motrin) 600 mg Q6H PRN PO 02/28/17 01:15 03/02/17 02:07 (Americaine 20% Top Spr) 1 spray Q4H PRN TOPICAL 02/28/17 01:15 03/01/17 22:55 (Tucks Pads) 1 applic QID PRN TOPICAL 02/28/17 01:15 03/01/17 11:10 (Justyna-Colace) 2 tab Q12H PRN PO 02/28/17 01:15 03/02/17 02:07 (Ambien) 5 mg HS PRN PO 02/28/17 01:15 (Mag-Al Plus Susp Liq) 15 ml Q8H PRN PO 02/28/17 01:15 (Zofran Odt) 4 mg Q6H PRN PO 02/28/17 01:15 (Percocet 5-325 Mg) 1 tab Q4H PRN PO 02/28/17 23:45 03/02/17 02:07 Assessment/Plan Assessment and Plan PPD#2 Admitted for PRe-e, LFT elevated on admit. repeat labs today with some decrease. BP mild range. Will f/u 1 wk for bp check Discharge Planning today Alanna Villarreal MD Mar 02, 2017 08:17
[2017-03-02 08:20] VITALS: BP 140/88; PULSE 68; RESP 18; TEMP 98.1
[2017-03-02] MEDS: WITCH HAZEL 50%/GLYCERIN 12.5% 40 PAD JAR TOPICAL PRN (09:48)
[2017-03-02 10:02] LABS: AUTOMATED NEUTROPHIL # 6.4 TH/MM3 (1.8-7.7); BASOPHIL % 0.3 % (0.0-2.0); EOSINOPHIL # 0.1 TH/MM3 (0-0.4); EOSINOPHIL % 0.8 % (0.0-4.0); HEMATOCRIT 27.1 % (35.0-46.0); HEMO FLAGS DIFF FINAL; LYMPH % 23.7 % (9.0-44.0); LYMPHOCYTE # 2.2 TH/MM3 (1.0-4.8); MEAN CELL VOLUME 86.2 FL (80.0-100.0); MEAN CORPUSCULAR HEMOGLOBIN 28.3 PG (27.0-34.0); MEAN CORPUSCULAR HGB CONC 32.8 % (32.0-36.0); MONO % 6.6 % (0.0-8.0); NEUT % 68.6 % (16.0-70.0); PLATELET COUNT 280 TH/MM3 (150-450); RED BLOOD COUNT 3.15 MIL/MM3 (4.00-5.30); RED CELL DISTRIBUTION WIDTH 15.1 % (11.6-17.2); WHITE BLOOD COUNT 9.3 TH/MM3 (4.0-11.0)
[2017-03-02] MEDS ORDERED: DIPHTH/TETANUS/ACEL PERTUSSIS (BOOSTER) 0.5 ML VIAL/PFS IM ONE (10:15)
[2017-03-02 10:28] LABS: ALT (GPT) 90 U/L (9-42); ANION GAP 5 MEQ/L (5-15); AST (GOT) 48 U/L (16-38); BICARBONATE 30.4 MEQ/L (21.0-32.0); BLOOD UREA NITROGEN 8 MG/DL (7-18); CHLORIDE 105 MEQ/L (98-107); GLOMERULAR FILTRATION RATE 125 ML/MIN (>89); POTASSIUM 4.2 MEQ/L (3.5-5.1); SODIUM (NA) 140 MEQ/L (136-145)
[2017-03-02 10:30] LABS: ALKALINE PHOSPHATASE 184 U/L (45-117); TOTAL BILIRUBIN ADULT 0.3 MG/DL (0.2-1.0)
[2017-03-02] MEDS ORDERED: IBUP-232 PO (11:15)
== END 2017-03-02 13:16 | disposition home or self-care (01) | DRG 775 ==
LOC: H2EB 18:48 → H1EA 02-28 03:00
PROVIDERS: ADMIT Obstetrics & Gynecology; ATTEND Obstetrics & Gynecology
PROC: 10E0XZZ Delivery of Products of Conception, External Approach (ICD-10-PCS; principal; 2017-02-28)
PROC: 3E0R3CZ (ICD-10-PCS; 2017-02-28)
PROC: 00HU33Z Insertion of Infusion Device into Spinal Canal, Percutaneous Approach (ICD-10-PCS; 2017-02-28)
DX: O14.04 Mild to moderate pre-eclampsia, complicating childbirth (principal); O66.0 Obstructed labor due to shoulder dystocia; Z37.0 Single live birth; Z3A.38 38 weeks gestation of pregnancy
CPT/HCPCS: 59025; 80053; 81001; 85025; 86900; 86901; 90707; 90715; J2590; J3010; J7040; J7120

== ENCOUNTER 2017-12-14 04:46 | Emergency (ER) | payer MEDICAID ==
[~2017-12-14] VITALS: Wt 5.0 kg
[~2017-12-14 04:46] MED LIST changes: +IBUP-232 PO; -SPRI28TA PO
[2017-12-14 04:48] VITALS: BP 129/79; PULSE 86; RESP 15; TEMP 98.4; O2SAT 99
--- NOTE | 2017-12-14 05:33 | PD ---
HPI Chief Complaint: Visual Stylist Problem/Complaint Time Seen by Provider: 04:59 Travel History International Travel<30 days: No Contact w/Intl Traveler<30days: No Traveled to known affect area: No History of Present Illness HPI The patient is a 21 year old female who presents to the [facility] emergency department with a history of vaginal discharge that began 2 days ago. The patient reports that the vaginal discharge is white to yellow and clumpy. She reports that it has an odor. She denies any new sexual partners. She denies using condoms. She reports that she has been in a monogamous relationship for the last 5 years. She reports having some irritation and swelling of the labia. She denies having any rash or lesions. She denies having any known fevers. She denies having any vomiting or diarrhea. She reports that she has a burning sensation with urinating. She denies having any urinary frequency or urgency. Otherwise on review of systems, the patient denies having any recent cough, congestion, neck pain, chest pain, shortness of breath, or neurologic symptoms. LMP: Unsure, history of irregular cycles after having Mirena placed which was removed approximately 1 month ago and she started on oral contraceptives. PFS Past Medical History Narrative Medical The patient's past medical history is significant for migraine headaches. 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 Hysterectomy: No Tonsillectomy: Yes Social History Alcohol Use: No Tobacco Use: No Substance Use: No Allergies-Medications (Allergen,Severity, Reaction): Coded Allergies: No Known Allergies (Unverified Allergy, Unknown, 12/14/17) Reported Meds & Prescriptions Reported Meds & Active Scripts Active Review of Systems Except as stated in HPI: all other systems reviewed are Neg General / Constitutional: No: Fever Eyes: No: Visual changes HENT: No: Headaches Cardiovascular: No: Chest Pain or Discomfort Respiratory: No: Shortness of Breath Gastrointestinal: No: Abdominal Pain Genitourinary: Positive: Dysuria, Pelvic Pain, Discharge, No: Urgency, Frequency Musculoskeletal: No: Pain Skin: No Rash Neurologic: No: Weakness Psychiatric: No: Depression Endocrine: No: Polydipsia Hematologic/Lymphatic: No: Easy Bruising Physical Exam Narrative General: The patient is a well-developed well-nourished female in no acute distress. Head and Neck exam: Head is normocephalic atraumatic. Eyes: EOMI, pupils are equal round and reactive to light. Nose: Midline septum with pink mucous membranes Mouth: Dentition unremarkable. Moist mucus membranes. Posterior oropharynx is not erythematous. No tonsillar hypertrophy. Uvula midline. Airway patent. Neck: No palpable lymphadenopathy. No nuchal rigidity. No thyromegaly. Cardiovascular: Regular rate and rhythm without murmurs, gallops, or rubs. Lungs: Clear to auscultation bilaterally. No wheezes, rhonchi, or rales. Abdomen: Soft, without tenderness to palpation in all 4 quadrants of the abdomen. No guarding, rebound, or rigidity. Normal bowel sounds are audible. No tenderness on palpation of McBurney's point. Negative Orantes sign Extremities: No clubbing, cyanosis, or edema. Back: No costovertebral angle tenderness to palpation. Neurologic Exam: Grossly nonfocal Skin Exam: No rash noted. Intact skin that is warm and dry. Gynecologic exam: The patient was placed in the dorsal lithotomy position. Her external genitalia were examined and noted to have swelling with generalized erythema to the labia minora. No focal lesions are noted, however a viral swab was collected to evaluate for herpes.The speculum was placed into her vagina and the cervix was identified. She had a thick white to yellow discharge noted. She has cervical friability noted On Bimanual exam: she has reported cervical motion tenderness on palpation. No adnexal tenderness or prominence noted on palpation. No uterine tenderness or enlargement noted on palpation. Data Data Last Documented VS Vital Signs Date Time Temp Pulse Resp B/P (MAP) Pulse Ox O2 Delivery O2 Flow Rate FiO2 12/14/17 04:48 98.4 86 15 129/79 (96) 99 Orders Orders Gc And Chlamydia Pcr (12/14/17 05:00) Wet Prep Profile (12/14/17 05:00) Urinalysis - C+S If Indicated (12/14/17 05:00) Herpes Simplex Virus Culture (12/14/17 05:00) Ed Urine Pregnancytest Poc (12/14/17 05:00) Azithromycin Powd Pack (Zithromax Powd P (12/14/17 05:45) Ceftriaxone Inj (Rocephin Inj) (12/14/17 05:45) Lidocaine 1% Inj (50 Ml) (Xylocaine 1% I (12/14/17 05:45) Labs Laboratory Tests Test 12/14/17 05:25 12/14/17 05:26 Urine Color LIGHT-YELLOW Urine Turbidity CLEAR Urine pH 5.5 Urine Specific [place] 1.017 Urine Protein NEG mg/dL Urine Glucose (UA) NEG mg/dL Urine Ketones NEG mg/dL Urine Occult Blood NEG Urine Nitrite NEG Urine Bilirubin NEG Urine Urobilinogen LESS THAN 2.0 MG/DL Urine Leukocyte Esterase MOD Urine RBC 1 /hpf Urine WBC 1 /hpf Urine Squamous Epithelial Cells <1 /hpf Microscopic Urinalysis Comment CULT NOT INDICATED Clue Cells (Wet Prep) NONE SEEN Vaginal Trichomonas (Wet Prep) NONE SEEN Vaginal Yeast (Wet Prep) PRESENT MDM Medical Decision Making Medical Screen Exam Complete: Yes Emergency Medical Condition: Yes Medical Record Reviewed: Yes Differential Diagnosis Gonorrhea, versus chlamydia, versus trichomoniasis, versus yeast vaginitis, versus genital herpes, versus bacterial vaginosis Narrative Course During the course of the patient's emergency department visit, the patient's history, examination, and differential diagnosis were reviewed with the patient. The patient was placed on a mine promotor with oximetry and frequent blood pressure monitoring. The patient had a wet prep, GC and chlamydia, viral culture ordered. A urine will be sent for analysis. A bedside test was done and negative. The patient was initially provided Rocephin 250 IM, Zithromax 1 g p.o. 1. The patient's laboratory studies were reviewed and remarkable for a urinalysis that shows moderate leukocyte esterase, otherwise unremarkable. Wet prep is positive for yeast. The patient will be discharged home with a prescription for Diflucan. The patient is instructed to take 1 pill once and if the symptoms have not completely resolved in 3 days she is given a refill for a second dose. The patient is resting comfortably and feels better, is alert and in no distress. The patient's results and examination findings were discussed with the patient. The repeat examination is unremarkable and benign. The history, exam, diagnostic testing, and current condition do not suggest any significant pathology to warrant further testing, continued ED treatment, admission, or surgical evaluation at this point. The vital signs have been stable. The patient does not have uncontrollable pain, intractable vomiting, or other significant symptoms. The patient's condition is stable and appropriate for discharge. The patient will pursue further outpatient evaluation with a primary care physician or other designated or consulting physician as indicated in the discharge instructions. The patient expressed understanding and was agreeable with this plan. Diagnosis Primary Impression: Yeast vaginitis Referrals: [facility] 1 week [facility] Dept. 1 week Patient Instructions: General Instructions, Vaginitis (ED), Vulvovaginal Candidiasis (ED) Additional Instructions: The patient is instructed to take Diflucan 1 pill 1 time, and after 3 days if she continues to have symptoms, she should refill the prescription and take a second pill. Med/Other Pt SpecificInfo: Prescription(s) given Scripts Fluconazole (Diflucan) 150 Mg Tab 150 MG PO ONCE for Infection, #1 TAB 1 Refill Prov: Belle Pennington MD 12/14/17 Disposition: DISCHARGE HOME Condition: Stable Belle Pennington MD Dec 14, 2017 05:32
[2017-12-14 05:40] LABS: BILIRUBIN, URINE NEG (NEG); BLOOD, URINE NEG (NEG); GLUCOSE,URINE NEG (NEG); KETONE, URINE NEG (NEG); NITRITE,URINE NEG (NEG); PH, URINE 5.5 (5.0-8.5); SQUAMOUS EPITHELIAL CELL URINE <1 /hpf (0-5); URINE COLOR LIGHT-YELLOW (YELLW/STRAW); URINE LEUKOCYTE ESTERASE MOD (NEG)
[2017-12-14] MEDS ORDERED: AZITHROMYCIN PWD FOR SUSP 1 GM PACKET PO ONE (05:45)
[2017-12-14] MEDS ORDERED: LIDOCAINE HCL 1% 50 ML VIAL IM ONE (05:45)
[2017-12-14] MEDS ORDERED: cefTRIAXone 250 MG VIAL IM ONE (05:45)
[2017-12-14] MEDS ORDERED: DIFL150T PO (05:53)
[2017-12-14] MEDS ORDERED: LIDOCAINE HCL 1% PF 30 ML VIAL ONE (06:26)
== END 2017-12-14 06:48 | disposition home or self-care (01) ==
LOC: NEPC 04:46
DX: B37.3 Candidiasis of vulva and vagina (principal)
CPT/HCPCS: 81001; 84703; 87210; 87255; 87491; 87591; 96372; 99283; J0696

== ENCOUNTER 2018-01-28 02:49 | Emergency (ER) | payer MEDICAID ==
[~2018-01-28 02:49] MED LIST changes: +DIFL150T PO; -IBUP-232 PO
[2018-01-28 02:51] VITALS: BP 132/63; PULSE 96; RESP 16; TEMP 98.1; O2SAT 100
--- NOTE | 2018-01-28 03:23 | PD ---
HPI Chief Complaint: Abdominal Pain Time Seen by Provider: 03:13 Travel History International Travel<30 days: No Contact w/Intl Traveler<30days: No Traveled to known affect area: No History of Present Illness HPI 22-year-old female presents to the emergency department by private transportation for complaint of head urinary frequency and fever. Patient states she has had symptoms 3 days. Patient denies dysuria or vaginal bleeding. Last menstrual period was in September. Patient states that she was on the Mirena IUD but then this was removed and was placed on oral contraceptive. Patient was seen as recently as 12/14/17 vaginal discharge at which time her test was negative and she was treated with Diflucan for yeast infection. Patient has had no upper respiratory symptoms no sinus pressure drainage no sore throat no earache no cough no congestion no chest pain no shortness of breath and no generalized abdominal pain. No report of nausea or vomiting. No report of diarrhea. Patient is unable to identify exacerbating or alleviating factors. Patient is 1 para 1 Ab0. Pain 8/ 10. Patient states headache is a typical migraine for her not sudden onset not thunderclap and not worst ever. Patient does not report any photophobia at this time it does report her typical nausea. Patient has had migraine headaches since age 9 brother also has migraines. [facility] Past Medical History Narrative Medical Migraines, left frontal lobe venous hemangioma MRI 2009, tonsillectomy Ab0 ; no tobacco use; nursing notes reviewed Medical History: Denies Significant Hx Hx Anticoagulant Therapy: No Cardiovascular Problems: No Chemotherapy: No Cerebrovascular Accident: No Developmental Delay: No Diabetes: No Diminished Hearing: No Neurologic: Yes (TINY VENOUS ANGIOMA LT FRONTAL LOBE 2010) Respiratory: No Immunizations Current: Yes Migraines: Yes ?: Not : 1 Para: 0 Past Surgical History Hysterectomy: No Tonsillectomy: Yes Social History Alcohol Use: No Tobacco Use: No Substance Use: No Allergies-Medications (Allergen,Severity, Reaction): Coded Allergies: No Known Allergies (Unverified Allergy, Unknown, 01/28/18) Reported Meds & Prescriptions Reported Meds & Active Scripts Active Review of Systems Except as stated in HPI: all other systems reviewed are Neg General / Constitutional: Positive: Fever HENT: Positive: Headaches, No: Congestion, Neck Pain Cardiovascular: No: Chest Pain or Discomfort Respiratory: No: Shortness of Breath Gastrointestinal: Positive: Abdominal Pain (suprpubic pressure), No: Nausea, Vomiting Genitourinary: Positive: Frequency, No: Dysuria, Discharge, Vaginal Bleeding Neurologic: No: Weakness, Dizziness Psychiatric: No: Anxiety Hematologic/Lymphatic: No: Lymph Node Enlargement Physical Exam Narrative GENERAL: Well-developed well-nourished female no acute distress no respiratory distress SKIN: Warm and dry. HEAD: Normocephalic. EYES: No scleral icterus. No injection or drainage. NECK: Supple, trachea midline. No JVD or lymphadenopathy. No meningismus no nuchal rigidity CARDIOVASCULAR: Regular rate and rhythm without murmurs, gallops, or rubs. RESPIRATORY: Breath sounds equal bilaterally. No accessory muscle use. GASTROINTESTINAL: Abdomen soft, non-tender except for mild suprapubic tenderness to direct palpation without guarding or rebound, nondistended. Pelvic exam: Normal external exam no redness induration or thickening exam scant white mucus no blood no clots no tissue; bimanual exam no adnexal mass or tenderness no cervical motion tenderness MUSCULOSKELETAL: No cyanosis, or edema. BACK: Nontender without obvious deformity. No CVA tenderness. Data Data Last Documented VS Vital Signs Date Time Temp Pulse Resp B/P (MAP) Pulse Ox O2 Delivery O2 Flow Rate FiO2 01/28/18 04:46 16 01/28/18 02:51 98.1 96 132/63 (86) 100 Orders Orders Beta Hcg (Quant/Titer) (01/28/18 03:13) Complete Blood Count With Diff (01/28/18 03:13) Comprehensive Metabolic Panel (01/28/18 03:13) Gc And Chlamydia Pcr (01/28/18 03:13) Complete Rh (01/28/18 03:13) Wet Prep Profile (01/28/18 03:13) Urinalysis - C+S If Indicated (01/28/18 03:13) Iv Access Insert/Monitor (01/28/18 03:13) Ed Urine Pregnancytest Poc (01/28/18 03:13) Sodium Chlor 0.9% 1000 Ml Inj (Ns 1000 M (01/28/18 03:30) Acetaminophen (Tylenol) (01/28/18 03:30) Metoclopramide Inj (Reglan Inj) (01/28/18 03:45) Us Pelvis (Ques Pr/Ect)W Trans (01/28/18 ) Labs Laboratory Tests Test 01/28/18 03:30 White Blood Count 10.9 TH/MM3 Red Blood Count 4.54 MIL/MM3 Hemoglobin 13.6 GM/DL Hematocrit 40.5 % Mean Corpuscular Volume 89.1 FL Mean Corpuscular Hemoglobin 29.9 PG Mean Corpuscular Hemoglobin Concent 33.6 % Red Cell Distribution Width 12.7 % Platelet Count 392 TH/MM3 Mean Platelet Volume 8.2 FL Neutrophils (%) (Auto) 54.7 % Lymphocytes (%) (Auto) 35.3 % Monocytes (%) (Auto) 8.6 % Eosinophils (%) (Auto) 0.9 % Basophils (%) (Auto) 0.5 % Neutrophils # (Auto) 6.0 TH/MM3 Lymphocytes # (Auto) 3.9 TH/MM3 Monocytes # (Auto) 0.9 TH/MM3 Eosinophils # (Auto) 0.1 TH/MM3 Basophils # (Auto) 0.1 TH/MM3 CBC Comment DIFF FINAL Differential Comment Urine Color LIGHT-YELLOW Urine Turbidity CLEAR Urine pH 5.5 Urine Specific [place] 1.010 Urine Protein NEG mg/dL Urine Glucose (UA) NEG mg/dL Urine Ketones NEG mg/dL Urine Occult Blood NEG Urine Nitrite NEG Urine Bilirubin NEG Urine Urobilinogen LESS THAN 2.0 MG/DL Urine Leukocyte Esterase NEG Urine RBC LESS THAN 1 /hpf Urine WBC 1 /hpf Urine Squamous Epithelial Cells <1 /hpf Urine Mucus FEW /lpf Microscopic Urinalysis Comment CULT NOT INDICATED Clue Cells (Wet Prep) NONE SEEN Vaginal Trichomonas (Wet Prep) NONE SEEN Vaginal Yeast (Wet Prep) NONE SEEN Blood Urea Nitrogen 10 MG/DL Creatinine 0.79 MG/DL Random Glucose 89 MG/DL Total Protein 8.0 GM/DL Albumin 3.5 GM/DL Calcium Level 8.8 MG/DL Alkaline Phosphatase 71 U/L Aspartate Amino Transf (AST/SGOT) 11 U/L Alanine Aminotransferase (ALT/SGPT) 19 U/L Total Bilirubin 0.2 MG/DL Sodium Level 138 MEQ/L Potassium Level 3.4 MEQ/L Chloride Level 105 MEQ/L Carbon Dioxide Level 22.6 MEQ/L Anion Gap 10 MEQ/L Estimat Glomerular Filtration Rate 111 ML/MIN Human Chorionic Gonadotropin, Quant 60379 MIU/ML MDM Medical Decision Making Medical Screen Exam Complete: Yes Emergency Medical Condition: Yes Medical Record Reviewed: Yes (POC test 12/14/17 negative) Interpretation(s) [id number] hCG: Positive UA: wnl wet prep: negative cbc: wnl hc,633, elevated (A+) CBC & BMP Diagram 01/28/18 03:30 Total Protein 8.0, Albumin 3.5, Calcium Level 8.8, Alkaline Phosphatase 71, Aspartate Amino Transf (AST/SGOT) 11 L, Alanine Aminotransferase (ALT/SGPT) 19, Total Bilirubin 0.2 Vital Signs Date Time Temp Pulse Resp B/P (MAP) Pulse Ox O2 Delivery O2 Flow Rate FiO2 01/28/18 04:46 16 01/28/18 02:51 98.1 96 16 132/63 (86) 100 Last Impressions Pelvis Ultrasound 01/28/18 0000 Signed Impressions: CONCLUSION: 1. Viable 6 week 3 day intrauterine . [id number] Differential Diagnosis Abdominal pain, UTI, gastroenteritis, appendicitis, ectopic , ruptured ovarian cyst, viral syndrome, migraine, ICH Narrative Course IV access obtained specimens collected and sent for resulting patient requesting pain medication for headache patient requests acetaminophen given 650 mg of acetaminophen 1 dose. Patient with complaint of nausea --reported tolerated zofran during last After informed verbal consent patient was placed in supine positioning and using curvilinear probe in the transverse and longitudinal views single intrauterine was identified with heart activity Ultrasound identifies single 6 week 3 day intrauterine Diagnosis Primary Impression: Qualified Codes: Z3A.01 - Less than 8 weeks gestation of Additional Impression: Migraine Referrals: [facility] [employer] call for appointment Patient Instructions: General Instructions Additional Instructions: Increase fluid hydration Pelvic rest Follow-up with [facility] call office in a.m. to schedule follow-up appointment Take acetaminophen/Tylenol as needed for headache Take as tolerated Reglan 10 MG for nausea or vomiting or may take Zofran ODT 4 mg every 6 hours for breakthrough nausea or vomiting as prescribed Return the emergency department for concerns or change in condition Recommend 48 hour recheck quantitative hCG blood test Take vitamin daily Med/Other Pt SpecificInfo: Prescription(s) given Scripts Ondansetron Odt (Zofran Odt) 4 Mg Tab 4 MG SL Q6HR Y for Nausea/Vomiting, #6 TAB 0 Refills Prov: Judy Paez MD 01/28/18 Metoclopramide (Reglan) 10 Mg Tab 10 MG PO Q6HR for Nausea/Vomiting, #7 TAB 0 Refills Prov: Judy Paez MD 01/28/18 Disposition: 01 DISCHARGE HOME Condition: Stable Judy Paez MD Jan 28, 2018 03:23
[2018-01-28] MEDS ORDERED: ACETAMINOPHEN 325 MG TAB PO ONE (03:30)
[2018-01-28] MEDS ORDERED: SODIUM CHLOR 0.9% 1000 ML INJ 1,000 ML IV ONE (03:30)
[2018-01-28 03:44] LABS: BASOPHIL # 0.1 TH/MM3 (0-0.2); BASOPHIL % 0.5 % (0.0-2.0); EOSINOPHIL # 0.1 TH/MM3 (0-0.4); EOSINOPHIL % 0.9 % (0.0-4.0); HEMATOCRIT 40.5 % (35.0-46.0); HEMOGLOBIN 13.6 GM/DL (11.6-15.3); LYMPH % 35.3 % (9.0-44.0); LYMPHOCYTE # 3.9 TH/MM3 (1.0-4.8); MEAN CELL VOLUME 89.1 FL (80.0-100.0); MEAN CORPUSCULAR HEMOGLOBIN 29.9 PG (27.0-34.0); MEAN CORPUSCULAR HGB CONC 33.6 % (32.0-36.0); MEAN PLATELET VOLUME 8.2 FL (7.0-11.0); MONO % 8.6 % (0.0-8.0); MONOCYTE # 0.9 TH/MM3 (0-0.9); NEUT % 54.7 % (16.0-70.0); PLATELET COUNT 392 TH/MM3 (150-450); RED BLOOD COUNT 4.54 MIL/MM3 (4.00-5.30); RED CELL DISTRIBUTION WIDTH 12.7 % (11.6-17.2); WHITE BLOOD COUNT 10.9 TH/MM3 (4.0-11.0)
[2018-01-28] MEDS ORDERED: METOCLOPRAMIDE HCL 10 MG/2 ML VIAL IV PUSH ONE (03:45)
[2018-01-28 03:50] LABS: BILIRUBIN, URINE NEG (NEG); BLOOD, URINE NEG (NEG); GLUCOSE,URINE NEG (NEG); KETONE, URINE NEG (NEG); MUCUS URINE FEW /lpf (OCC); NITRITE,URINE NEG (NEG); PH, URINE 5.5 (5.0-8.5); SQUAMOUS EPITHELIAL CELL URINE <1 /hpf (0-5); URINE COLOR LIGHT-YELLOW (YELLW/STRAW); URINE LEUKOCYTE ESTERASE NEG (NEG)
[2018-01-28 04:00] LABS: ALBUMIN 3.5 GM/DL (3.4-5.0); ALT (GPT) 19 U/L (10-53); AST (GOT) 11 U/L (15-37); BICARBONATE 22.6 MEQ/L (21.0-32.0); BLOOD UREA NITROGEN 10 MG/DL (7-18); CALCIUM 8.8 MG/DL (8.5-10.1); CHLORIDE 105 MEQ/L (98-107); CREATININE 0.79 MG/DL (0.50-1.00); GLOMERULAR FILTRATION RATE 111 ML/MIN (>89); GLUCOSE,RANDOM 89 MG/DL (74-106); SODIUM (NA) 138 MEQ/L (136-145)
[2018-01-28 04:16] LABS: ALKALINE PHOSPHATASE 71 U/L (45-117); TOTAL BILIRUBIN ADULT 0.2 MG/DL (0.2-1.0)
[2018-01-28 04:46] VITALS: RESP 16
--- NOTE | 2018-01-28 06:18 | RADRPT ---
EXAM DATE: 01/28/2018 6:05 AM EDT AGE/SEX: 22 years / Female INDICATIONS: Pelvic pain. CLINICAL DATA: This is the patient's initial encounter. Patient reports that signs and symptoms have been present for 1 day and indicates a pain score of 6/10. MEDICAL/SURGICAL HISTORY: . . COMPARISON: No prior exams available for comparison. No external comparison. MEASUREMENTS: Uterus:__8.4 x 5.6 x 5.2 Endometrial Stripe:__>20 mm Right Ovary:__ 2.8 x 2.6 x 2.4 cm Left Ovary:__ 3.1 x 2.0 x 1.9 cm FINDINGS: There is a viable 6 week 3 day intrauterine by crown-rump length. heart rate is 161 b pm. Positive yolk sac. No adnexal mass or free fluid. CONCLUSION: 1. Viable 6 week 3 day intrauterine . Electronically signed by: Brent Stoddard MD 01/28/2018 6:17 AM EDT
[2018-01-28] MEDS ORDERED: REGL10TA5 PO (06:23)
[2018-01-28] MEDS ORDERED: ZOFR4TAB3 SL (06:23)
== END 2018-01-28 06:42 | disposition home or self-care (01) ==
LOC: NEPC 02:49
DX: O26.891 Other specified pregnancy related conditions, first trimester (principal); G43.909 Migraine, unspecified, not intractable, without status migrainosus; R51 Headache; R35.0 Frequency of micturition; Z3A.01 Less than 8 weeks gestation of pregnancy; Z34.91 Encounter for supervision of normal pregnancy, unspecified, first trimester
CPT/HCPCS: 76700; 76817; 80053; 81001; 84702; 84703; 85025; 86901; 87210; 87491; 87591; 96374; 99285; J2765; J7030